=== PATIENT | male | born 2000 | race Hispanic/Latino ===

== ENCOUNTER 2022-08-27 19:10 | Emergency (ER) | payer BC, OTHER | END 2022-08-27 20:05 | disposition left against medical advice (07) | LOC: EDH 19:10 | DX: S99.921A Unspecified injury of right foot, initial encounter (principal); X58.XXXA Exposure to other specified factors, initial encounter; Y93.89 Activity, other specified; Y92.89 Other specified places as the place of occurrence of the external cause; Y99.8 Other external cause status ==

== ENCOUNTER 2025-03-19 23:12 | Emergency (ER) | payer OTHER ==
[~2025-03-19] VITALS: Ht 182.9 cm; Wt 166.0 kg
[2025-03-19 23:51] LABS: RAPID GROUP A STREP NEGATIVE (NEGATIVE)
[2025-03-19 23:52] LABS: SARS-CoV-2, RNA, NAAT NEGATIVE SARS CoV-2 (NEGATIVE)
[2025-03-19 23:54] LABS: INFLUENZA TYPE B Negative For Type B (NEGATIVE)
[2025-03-19 23:58] LABS: INFLUENZA TYPE A Positive For Type A (NEGATIVE)
[2025-03-20] MEDS ORDERED: OSEL75 PO (00:26)
[2025-03-20] MEDS ORDERED: ONDA-243 SL (00:26)
[2025-03-20] MEDS ORDERED: IBUP-2077 PO (00:26)
--- NOTE | 2025-03-20 00:27 | ERN ---
ED Note History of Present Illness Stated Complaint: FEVER, VOMITING, HEADACHE, COUGH Chief Complaint: Fever Time Seen by MD: 23:17 Dictation: 24-YEAR-OLD MALE PRESENTS TO ER COMPLAINTS OF FEVER AND NAUSEA X2 DAYS. Allergies: Coded Allergies: No Known Allergies (Unverified Allergy, Unknown, 03/19/25) Home Meds Active Scripts Ibuprofen (Ibuprofen 800 mg Tab) 800 Mg Tab, 800 MG PO Q6H PRN for fever or pain, #30 TAB 0 Refills Prov:GINCAMI [facility] 03/20/25 Ondansetron (Ondansetron Odt) 4 Mg Tab.rapdis, 4 MG SL ONCE PRN for Q4H, #15 TAB Prov:JR GREENFIELDARITA [facility] 03/20/25 Oseltamivir Phosphate (Tamiflu) 75 Mg Cap, 75 MG PO BID for 5 Days, #10 CAP Prov:JR GREENFIELDARITA [facility] 03/20/25 Past Medical History Past Medical History: No Pertinent History Surgical History: None Review of System Dictation CONSTITUTIONAL: POSITIVE FEVER AND CHILLS EYES: NEGATIVE FOR INJURY, PAIN,REDNESS, AND DISCHARGE ENT: NEGATIVE FOR INJURY,PAIN OR SWELLING CARDIOVASCULAR: NEGATIVE FOR CHEST PAIN, PALPITATIONS, AND EDEMA RESPIRATORY: NEGATIVE FOR SHORTNESS OF BREATH, COUGH, WHEEZING, AND PLEURITIC CHEST PAIN ABDOMEN/GI: NEGATIVE FOR ABDOMINAL PAIN, VOMITING AND DIARRHEA. . POSITIVE NAUSEA BACK: NEGATIVE FOR PAIN OR INJURY : NEGATIVE FOR INJURY, BLEEDING AND DISCHARGE MS/EXTREMITY: NEGATIVE FOR INJURY AND DEFORMITY SKIN: NEGATIVE FOR RASH, AND DISCOLORATION NEURO: NEGATIVE FOR HEADACHE, WEAKNESS, NUMBNESS, TINGLING, AND SEIZURE PSYCH: NEGATIVE FOR SUICIDE IDEATION, HOMICIDAL IDEATION, AND HALLUCINATIONS ALLERGY/IMMUNOLOGY: NEGATIVE FOR HIVES, RASH, AND ALLERGIES ALL SYSTEMS NEGATIVE, EXCEPT NOTED ABOVE. 13 POINT REVIEW OF SYSTEMS ASSESSED AND ALL NEGATIVE EXCEPT FOR ABOVE. Initial Vital Sign VS Vital Signs Date Time Temp Pulse Resp B/P (MAP) Pulse Ox O2 Delivery O2 Flow Rate FiO2 03/19/25 23:14 101.1 117 20 133/65 99 Room Air 0 Physical Exam Dictation GENERAL: AWAKE, ALERT, NAD HEAD/FACE: NORMOCEPHALIC, ATRAUMATIC EYES: PERRL, EOMI, VISION AT BASELINE ENT: ORAL CAVITY CLEAR, TMS CLEAR, NO SIGNS OF INFECTION NECK: TRACHEA MIDLINE, SUPPLE, NO NUCHAL RIGIDITY CARDIOVASCULAR: RRR, NORMAL NO JVD RESPIRATORY: CTAB, NO RESPIRATORY DISTRESS, NO RALES OR WHEEZES ABDOMEN: SOFT, NON-TENDER, NON-DISTENDED, NORMAL BOWEL SOUNDS, NO GUARDING OR REBOUND. SKIN: WARM, DRY, NORMAL TURGOR, NO RASH MS/EXTREMITY: PULSES EQUAL, NO CYANOSIS, NEUROVASCULAR INTACT, FROM NEURO: COAX4, GCS 15, STRENGTH 5/5, CN 2-12 INTACT, NORMAL CEREBELLAR EXAM, NORMAL GAIT, PSYCH: NORMAL BEHAVIOR, MOOD, AND AFFECT NORMAL Results (Laboratory/Radiology) Laboratory/Radiology Laboratory Tests Test 03/19/25 23:20 Influenza Type A Antigen Positive For Type A Influenza Type B Antigen Negative For Type B SARS-CoV-2, RNA, NAAT NEGATIVE SARS CoV-2 Group A Streptococcus Rapid NEGATIVE (NEGATIVE) ED Course ED Course Orders Procedure Category Date Status Time Covid Rna Naat LAB 03/19/25 Complete 23:27 Influenza Type A & B, LAB 03/19/25 Complete Rapid 23:27 Rapid (Group A Strep) LAB 03/19/25 Complete 23:27 Ibuprofen 800 Mg Tab PHA 03/20/25 Complete (Motrin) 00:30 Ondansetron Odt 4mg PHA 03/20/25 Complete Tab (Zofran 4mg Odt) 00:30 Current Medications Medications (Trade) Dose Ordered Sig/Re Route PRN Reason Start Time Stop Time Status Last Admin Dose Admin Ibuprofen (moTRIN) 800 mg ONCE ONCE PO 03/20/25 00:30 03/20/25 00:31 DC Ondansetron HCl (zoFRAN 4MG ODT) 4 mg ONCE ONCE SL 03/20/25 00:30 03/20/25 00:31 DC Vital Signs Date Time Temp Pulse Resp B/P (MAP) Pulse Ox O2 Delivery O2 Flow Rate FiO2 03/19/25 23:14 101.1 117 20 133/65 99 Room Air 0 Medical Decision Making MDM MDM: DIFFERENTIAL DIAGNOSIS: INFLUENZA, COVID, URI RATIONALE: TESTS CONSIDERED AND ORDERED SECONDARY TO SHARED DECISION MAKING INCLUDE: LABS, ECG AND RADIOLOGY PREVIOUS OUTSIDE RECORDS REVIEWED: OLD ER VISITS. RISK OF COMPLICATION AND/OR MORBIDITY OR MORTALITY OF PATIENT MANAGEMENT: NONE MEDICATIONS-PER MEDICATION RECONCILIATION NEED FOR HOSPITALIZATION: PATIENT DOES NOT MEET CRITERIA FOR HOSPITALIZATION. NEED FOR EMERGENCY MAJOR/MINOR SURGERY: NO THERE ARE NO SOCIAL CONCERNS WITH THIS PATIENT. PRESCRIPTION DRUG MANAGEMENT PRESCRIPTIONS WILL INCLUDE SYMPTOMATIC CARE PATIENT'S PRIOR EXTERNAL MEDICAL RECORDS FROM OTHER ER VISITS WERE REVIEWED BY ME INDICATED. PRIOR TESTING AND RESULTS FROM PREVIOUS VISITS WERE REVIEWED. PRIOR TESTS WERE TAKEN INTO ACCOUNT WITH MEDICAL DECISION MAKING AND RESOURCE UTILIZATION, INDEPENDENT HISTORIAN/HISTORIANS WERE USED TO OBTAIN COMPLETE MEDICAL HISTORY. I INDEPENDENTLY INTERPRETED THE TEST THAT WERE PERFORMED, RESULTS WERE REVIEWED BY ME AND CONSIDERED FINDINGS ON RADIOLOGY IF ORDERED. PATIENT LAB RETURNED POSITIVE FOR INFLUENZA. PATIENT WILL BE PRESCRIBED TAMIFLU, IBUPROFEN AND ZOFRAN. PATIENT ADVISED TO STAY WELL HYDRATED. DX & DISP Disposition: Discharge Departure Impression: Primary Impression: Fever Additional Impression: Influenza Condition: Stable Scripts Ibuprofen (Ibuprofen 800 mg Tab) 800 Mg Tab 800 MG PO Q6H PRN for fever or pain, #30 TAB 0 Refills Prov: CAMI GREENFIELD 03/20/25 Ondansetron (Ondansetron Odt) 4 Mg Tab.rapdis 4 MG SL ONCE PRN for Q4H, #15 TAB Prov: CAMI GREENFIELD 03/20/25 Oseltamivir Phosphate (Tamiflu) 75 Mg Cap 75 MG PO BID for 5 Days, #10 CAP Prov: CAMI GREENFIELD 03/20/25 Additional Instructions: POSITIVE FOR FLU. YOU NEED TO TAKE MEDICATIONS TO HELP WITH SYMPTOMS. FOLLOW- UP WITH YOUR PCP IN 24-72 HOURS AND IN THE EVENT IF SYMPTOMS WORSEN OR AN EMERGENCY OVERNIGHT REPORT TO THE ED IMMEDIATELY Referrals: NADIYA DUMONT (PCP) CAMI GREENFIELD Mar 20, 2025 00:27
--- NOTE | 2025-03-20 02:06 | NUR ---
PATIENT NOT IN ER FAST TRACK AREA. LEFT WITHOUT DISCHARGE INSTRUCTIONS
[2025-03-20 02:07] VITALS: BP 122/72; PULSE 92; RESP 16; TEMP 99.1; O2SAT 100
== END 2025-03-20 02:07 | disposition home or self-care (01) ==
LOC: EDH 23:12
DX: J11.1 Influenza due to unidentified influenza virus with other respiratory manifestations (principal); Z20.822 Contact with and (suspected) exposure to COVID-19
CPT/HCPCS: 87635; 87804; 87880; 99283